=== PATIENT | male | born 1960 | race Caucasian/White ===

== ENCOUNTER → 2016-11-12 | Outpatient (REF) | LOC: ZLAB.WCH 10:09 | DX: Z01.89 Encounter for other specified special examinations (principal) ==

== ENCOUNTER → 2017-09-01 | Outpatient (REF) | LOC: ZLAB.WCH 18:04 | DX: Z01.89 Encounter for other specified special examinations (principal) ==

== ENCOUNTER → 2018-09-07 | Outpatient (REF) | LOC: ZLAB.WCH 16:26 | DX: Z01.89 Encounter for other specified special examinations (principal) ==

== ENCOUNTER 2018-10-07 21:26 | Observation (INO) | payer OTHER ==
[~2018-10-07] VITALS: Ht 185.4 cm; Wt 73.5 kg
[2018-10-07 22:01] LABS: BASO # 0.1 (0.0-0.2); BASO % 0.8 % (0.0-2.0); EOS # 0.2 (0.0-0.7); EOS % 3.8 % (0-4.0); GRAN # 2.7 (1.4-6.5); HEMATOCRIT 42.2 % (42.0-52.0); HEMOGLOBIN 14.2 g/dl (13.5-18.0); LYMPH # 2.3 (1.2-3.4); LYMPH % 37.8 % (20.0-51.0); MEAN CELL VOLUME 85 fl (80.0-100.0); MEAN CORPUSCULAR HEMOGLOBIN 29 pg (27.0-31.0); MEAN CORPUSCULAR HGB CONC 34 g/dl (33.0-37.0); MEAN PLATELET VOLUME 10.2 fl (7.4-10.4); MONO # 0.8 (0.1-0.6); MONO % 12.4 % (1.7-9.3); PLATELET COUNT 253 K/mm3 (130-400); RED BLOOD COUNT 4.98 M/mm3 (4.20-5.60); REDCELL DISTRIBUTION WIDTH-CV 13.2 % (11.5-14.5)
[2018-10-07 22:07] LABS: ALANINE AMINOTRANSFERASE 32 U/L (21-72); ALBUMIN 4.2 gm/dL (3.5-5.0); ALKALINE PHOSPHATASE 70 U/L (50-136); ANION GAP 8 mmol/L (7-16); AST,SGOT 33 U/L (15-37); BILIRUBIN,TOTAL 0.3 mg/dL (0.0-1.0); BLOOD UREA NITROGEN 18 mg/dL (9-20); CALCIUM 9.2 mg/dL (8.4-10.2); CARBON DIOXIDE 29 mmol/L (22-30); CHLORIDE 102 mmol/L (98-107); CREATININE, serum 0.76 mg/dL (0.66-1.25); GLUCOSE 124 mg/dL (74-106); POTASSIUM 3.8 mmol/L (3.4-5.0); SODIUM 139 mmol/L (137-145); TOTAL PROTEIN 7.2 gm/dL (6.4-8.2)
[2018-10-07 22:20] LABS: TROPONIN-I < 0.012 ng/mL (0.000-0.034)
[2018-10-07] MEDS ORDERED: LEVOXYL0.075 MG PO (22:29)
--- NOTE | 2018-10-07 23:35 | NUR ---
Arrived from ED via wheelchair. Assessment complete. Lungs clear. Heart sounds normal. Pulses strong. No facial droop, arm drift, or change in sensation present. Orientated patient to medical floor and hospital. Patient and family denies needs. Call light in reach.
[2018-10-08] VITALS (7 sets, daily range): BP systolic 103–119; BP diastolic 58–72; PULSE 47–58; TEMP 97.8–98.4
[2018-10-08 00:24] LABS: COLLECTION METHOD CLEAN CATCH
[2018-10-08 00:30] LABS: MUCOUS Present /lpf; PH 6 (5-8); SQUAMOUS EPITHELIAL None Seen /hpf; URINE APPEARANCE Clear; URINE BACTERIA None Seen /hpf; URINE BILIRUBIN Negative (NEGATIVE); URINE BLOOD Negative (NEGATIVE); URINE COLOR Yellow; URINE GLUCOSE Negative (NEGATIVE); URINE KETONE Negative (NEGATIVE); URINE LEUKOCYTE ESTERASE Negative (NEGATIVE); URINE NITRATE Negative (NEGATIVE); URINE PROTEIN(semi-quant) Negative (NEGATIVE); URINE RBC 0-2 /hpf; URINE UROBILINOGEN Negative (NEGATIVE)
[2018-10-08 01:11] LABS: PROTHROMBIN TIME 10.9 SECONDS (9.7-12.8)
[2018-10-08 01:14] LABS: PARTIAL THROMBOPLASTIN TIME 34.6 SECONDS (26.0-37.0)
[2018-10-08 01:17] LABS: PHOSPHOROUS 3.5 mg/dL (2.5-4.5)
--- NOTE | 2018-10-08 01:37 | NUR ---
Resting in bed. Denies needs. Call light in reach.
--- NOTE | 2018-10-08 08:00 | NUR ---
pT is A+Ox3, pleasant, denies pain, neuro check WNL with no deficits and all findigns bilateral. Denies vision changes, dizziness, etc. physical assessment completed. INT s redness/swelling at site. pt independent in room, denies furthr needs, installation and service technician here to take him to procedure
[2018-10-08 10:30] LABS: BASO % 0.9 % (0.0-2.0); EOS # 0.1 (0.0-0.7); EOS % 1.1 % (0-4.0); GRAN # 3.1 (1.4-6.5); GRAN % 67.4 % (42.2-75.2); HEMATOCRIT 44.4 % (42.0-52.0); HEMOGLOBIN 14.7 g/dl (13.5-18.0); LYMPH # 0.9 (1.2-3.4); MEAN CELL VOLUME 85 fl (80.0-100.0); MEAN CORPUSCULAR HEMOGLOBIN 28 pg (27.0-31.0); MEAN CORPUSCULAR HGB CONC 33 g/dl (33.0-37.0); MEAN PLATELET VOLUME 10.2 fl (7.4-10.4); MONO # 0.5 (0.1-0.6); MONO % 10.4 % (1.7-9.3); PLATELET COUNT 245 K/mm3 (130-400); RED BLOOD COUNT 5.23 M/mm3 (4.20-5.60); REDCELL DISTRIBUTION WIDTH-CV 13.1 % (11.5-14.5)
[2018-10-08 10:42] LABS: ALBUMIN 4.2 gm/dL (3.5-5.0); BILIRUBIN,TOTAL 0.5 mg/dL (0.0-1.0); CALCIUM 8.9 mg/dL (8.4-10.2); CREATININE, serum 0.69 mg/dL (0.66-1.25); POTASSIUM 4.2 mmol/L (3.4-5.0); TOTAL PROTEIN 7.2 gm/dL (6.4-8.2)
[2018-10-08 17:23] LABS: HOMOCYSTEINE 5.2 umol/L (5.5-16.2)
--- NOTE | 2018-10-08 18:23 | NUR ---
Pt had uneventful day, vitals stable, neuro checks WNL no deficits, INT s redness/swelling. Pt independent in room, eating dinner, family at bedside
--- NOTE | 2018-10-08 19:07 | NUR ---
Report written for Randi AGUIRRE, report given to Will AGUIRREsupercharger mechanic nurse, pt denies needs
--- NOTE | 2018-10-08 21:38 | NUR ---
Sitting at bedside. Recently showered independently. Assessment complete. Lungs clear. Hand drips strong. No facial droop. Reports no numbness or tingling in extremities. Denies pain. Denies needs at this time. Call light in reach.
--- NOTE | 2018-10-08 23:57 | NUR ---
Telemetry called stating patient pulse in the 40s. Assessed patient. No sx. States "I feel good." Pulse remains 44. Will monitor.
--- NOTE | 2018-10-09 02:13 | NUR ---
Resting in bed asleep. Call light in reach.
[2018-10-09 04:11] VITALS: BP 110/62; PULSE 56; TEMP 98.6
--- NOTE | 2018-10-09 05:05 | NUR ---
Resting in bed. Denied needs. Call light in reach.
--- NOTE | 2018-10-09 06:29 | NUR ---
Uneventful night. Denies needs at this time. Call light in reach.
[2018-10-09 07:26] VITALS: BP 104/55; PULSE 53; TEMP 98
--- NOTE | 2018-10-09 10:00 | NUR ---
pT is A+Ox3, pleasant, denies chest pain, SOB, and Neuro checks are WNL without any deficits. Pt idnependent in room and has been walking hallways frequently. IV to RFA s redness/swelling at site. Pt denies needs, physical assesment completed, at bedside, call light in reach
[2018-10-09 11:30] VITALS: BP 116/68; PULSE 52; TEMP 98.4
[2018-10-09] MEDS ORDERED: LIPITOR 10MG10 MG PO (13:21)
[2018-10-09] MEDS ORDERED: ASPIRIN 32325 MG/TAB PO (13:21)
[2018-10-09] MEDS ORDERED: PLAVIX 75MG TAB75 MG PO (13:21)
--- NOTE | 2018-10-09 15:20 | NUR ---
This RN discussed discharge instrutions with pt and his , answered all questions, INT removed from RFA with tip intact and site free of redness/swelling. Personal belongings collected, no further needs
[2018-10-10 17:31] LABS: RPR (VDRL) XXX
== END 2018-10-09 15:20 | disposition home or self-care (01) ==
LOC: COL.ER 21:26 → MEDICAL 22:02 → PEDS 23:15
PROVIDERS: Emergency Medicine; Nurse Practitioner Family; Psychiatry & Neurology Neurology; ADMIT Internal Medicine
DX: G45.9 Transient cerebral ischemic attack, unspecified (principal); E03.9 Hypothyroidism, unspecified; R03.0 Elevated blood-pressure reading, without diagnosis of hypertension; Z79.02 Long term (current) use of antithrombotics/antiplatelets; Z79.82 Long term (current) use of aspirin; Z82.3 Family history of stroke
CPT/HCPCS: A9585; C9113; G0378; J1650